=== PATIENT | female | born 1975 | race Caucasian/White ===

== ENCOUNTER 2020-05-04 08:14 | Emergency (ER) | payer MEDICAID ==
[~2020-05-04] VITALS: Ht 167.6 cm; Wt 75.0 kg
[2020-05-04 08:23] VITALS: BP 117/82
[2020-05-04] MEDS ORDERED: GABA-530 PO (09:00)
--- NOTE | 2020-05-04 09:03 | NUR ---
PAGED RT STAT PER CHARGE NURSE
== END 2020-05-04 09:09 | disposition home or self-care (01) ==
LOC: ER 08:15
DX: M54.5 Low back pain (principal); R20.0 Anesthesia of skin; R53.1 Weakness; Z88.6 Allergy status to analgesic agent; Z88.5 Allergy status to narcotic agent; Z88.8 Allergy status to other drugs, medicaments and biological substances; Z88.1 Allergy status to other antibiotic agents; Z79.899 Other long term (current) drug therapy
CPT/HCPCS: 99283